=== PATIENT | female | born 1965 | race African-American/Black ===

== ENCOUNTER 2021-12-20 03:36 | Emergency (ER) | payer BC, OTHER ==
[~2021-12-20] VITALS: Ht 170.2 cm; Wt 118.0 kg
[2021-12-20] MEDS ORDERED: VISCOUS LIDOCAINE 2% 15 ML UDC PO STA (04:10)
[2021-12-20] MEDS ORDERED: KETOROLAC 60MG/2ML VIAL IM ONE (04:15)
[2021-12-20 04:49] LABS: HEMOGLOBIN. 14.9 g/dL (12.0-16.0); MEAN CORPUSCULAR HEMOGLOBIN 32.1 pg (28.0-32.0); MEAN CORPUSCULAR VOLUME 92.8 fL (81.0-99.0); MEAN PLATELET VOLUME 7.1 fl (7.4-10.4); PLATELET 252 x1000/uL (130-400); RED BLOOD CELL COUNT 4.63 mill/uL (4.2-5.4)
[2021-12-20 05:02] LABS: CHLORIDE 105 mEq/L (98-107)
[2021-12-20 05:22] LABS: PLATELET ESTIMATE NORMAL
[2021-12-20 05:23] LABS: CLARITY URINE CLEAR (CLEAR); COLOR URINE YELLOW (YELLOW); KETONES URINE TRACE (NEGATIVE); LEUKOCYTE ESTERASE URINE NEGATIVE (NEGATIVE); NITRITE URINE NEGATIVE (NEGATIVE); OCCULT BLOOD URINE TRACE (NEGATIVE); PROTEIN URINE TRACE (NEGATIVE); SPECIFIC GRAVITY URINE 1.014 (1.005-1.030); UROBILINOGEN URINE 0.2 E.U./dL (0.2-1.0)
[2021-12-20] MEDS ORDERED: HYDROCODONE/ACETAMINOPHEN 5/325MG TABLET PO ONE (06:00)
[2021-12-20] MEDS ORDERED: TAMS-11 MT (06:00)
[2021-12-20] MEDS ORDERED: IBUP-2029 MT (06:00)
[2021-12-20] MEDS ORDERED: HYDR-4001 MT (06:00)
[2021-12-20 06:06] VITALS: BP 157/91
== END 2021-12-20 06:09 | disposition home or self-care (01) ==
LOC: ER 03:36
DX: N20.0 Calculus of kidney (principal); I49.9 Cardiac arrhythmia, unspecified
CPT/HCPCS: 36415; 74176; 80053; 81003; 83690; 85025; 93005; 96372; 99285; J1885

== ENCOUNTER 2023-01-31 08:06 | Emergency (ER) | payer MEDICAID, OTHER ==
[~2023-01-31] VITALS: Ht 170.2 cm; Wt 100.0 kg
[~2023-01-31 08:06] MED LIST: HYDR-4001 MT; IBUP-2029 MT; TAMS-11 MT
[2023-01-31] MEDS ORDERED: KETOROLAC 60MG/2ML VIAL IM ONE (09:00)
[2023-01-31 09:57] LABS: BASOPHILS % 0.3 % (0.0-2.0); EOSINOPHILS % 0.2 % (0.0-5.0); HEMATOCRIT. 43.1 % (36.0-48.0); HEMOGLOBIN. 15.1 g/dL (12.0-16.0); LYMPHOCYTES % 8.2 % (20.0-50.0); MEAN CORPUSCULAR HEMOGLOBIN 32.7 pg (28.0-32.0); MEAN CORPUSCULAR VOLUME 93.2 fL (81.0-99.0); MEAN PLATELET VOLUME 7.4 fl (7.4-10.4); MONOCYTES % 3.8 % (2.0-8.0); NEUTROPHILS % 87.5 % (40.0-76.0); PLATELET 246 x1000/uL (130-400); RED BLOOD CELL COUNT 4.62 mill/uL (4.2-5.4); RED CELL DISTRIBUTION WIDTH 13.1 % (11.6-14.6)
[2023-01-31 10:03] LABS: CHLORIDE 108 mEq/L (98-107)
[2023-01-31] MEDS ORDERED: KETOROLAC 60MG/2ML VIAL IM NR (10:45)
[2023-01-31 11:14] LABS: CLARITY URINE CLEAR (CLEAR); COLOR URINE YELLOW (YELLOW); KETONES URINE TRACE (NEGATIVE); LEUKOCYTE ESTERASE URINE NEGATIVE (NEGATIVE); NITRITE URINE NEGATIVE (NEGATIVE); OCCULT BLOOD URINE TRACE (NEGATIVE); PH URINE 7.5 (4.5-8.0); PROTEIN URINE NEGATIVE (NEGATIVE); SPECIFIC GRAVITY URINE 1.017 (1.005-1.030); UROBILINOGEN URINE 0.2 E.U./dL (0.2-1.0)
[2023-01-31] MEDS ORDERED: ONDANSETRON 4MG ODT PO ONE (11:15)
[2023-01-31] MEDS ORDERED: T3 PO (14:37)
[2023-01-31] MEDS ORDERED: IBUP-2029 MT (14:37)
[2023-01-31] MEDS ORDERED: TAMS-11 MT (14:37)
[2023-01-31] MEDS ORDERED: MORPHINE SULFATE 10 MG/ML CPJ IM ONE (14:45)
[2023-01-31 15:09] VITALS: BP 162/87
== END 2023-01-31 16:23 | disposition home or self-care (01) ==
LOC: ER 08:06
DX: N23 Unspecified renal colic (principal); Z98.890 Other specified postprocedural states
CPT/HCPCS: 36415; 74176; 80053; 81003; 85025; 96372; 99285; J1885; J2270; Q0162; Z7610